=== PATIENT | female | born 1995 | race Caucasian/White ===

== ENCOUNTER 2022-06-28 09:57 | Emergency (ER) | payer OTHER, SELFPAY ==
--- NOTE | 2022-06-28 10:00 | ED.URI ---
HPI - URI/Sore Throat General Chief Complaint: Anxiety Stated Complaint: hard time taking deep breath Time Seen by Provider: 06/28/22 10:00 Source: patient Mode of arrival: ambulatory Limitations: no limitations History of Present Illness HPI Narrative: Ms. Blunt is a 26-year-old female patient presenting to the clinic today with complaints of shortness of breath/difficulty taking a deep breath. She reports she has had the symptoms began over the weekend. She reports that she has had increased stress. She is a current smoker/vaping and is on the [employer]. She denies any recent long travel. She denies any history of asthma. She has a nonproductive cough at times. Denies any fever or chills. Took a at home COVID test yesterday and was negative. Related Data Home Medications Medication Instructions Recorded Confirmed No Home Medications 06/28/22 06/28/22 Allergies Allergy/AdvReac Type Severity Reaction Status Date / Time No Known Allergies Allergy Verified 06/28/22 10:15 Review of Systems Review of Systems: Pertinent positives per HPI. Patient denies any fever, chills, rash, headache, visual changes, dizziness, cough, runny nose, sore throat, chest pain, palpitations, nausea, vomiting, diarrhea, constipation, abdominal pain, or any urinary issues. PMFSH Comments At the time of my signature, I reviewed and agree with the nursing past medical, surgical, social, and family history. There is no relevant family history pertinent to the patient complaint. Exam Narrative: General: Well-developed, well nourished, in no apparent distress Head: Normocephalic, atraumatic Eyes: Pupils equally round and reactive to light bilaterally, EOM intact, sclera and conjunctive clear, no discharge, lids normal Ears: TMs intact and clear, ear canals clear, no drainage, grossly hearing normal. Nose: Nares patent, no discharge, no inflammation, no sinus tenderness. Mouth: Oropharynx without lesions or masses, good dentition, MMM. Neck: Supple, trachea midline, no enlargement of anterior or posterior cervical nodes, no thyroid masses or goiter palpable. Cardio: Regular rate and rhythm, s1 and s2 normal, no murmur appreciated. Resp: Clear to auscultation bilaterally anteriorly and posteriorly, no rhonchi, rales, wheezing or rubs Course Course Emergency Course: Portions of this record may have been created with voice recognition software. Level of Care: Express Care Visit Vital Signs Vital signs: Vital Signs Temperature 36.9 C 06/28/22 10:12 Pulse Rate 105 H 06/28/22 10:12 Respiratory Rate 18 06/28/22 10:12 Blood Pressure 122/80 06/28/22 10:12 Pulse Oximetry 100 06/28/22 10:12 Oxygen Delivery Room Air 06/28/22 10:12 Temperature 36.9 C 06/28/22 10:12 Pulse Rate 105 H 06/28/22 10:12 Respiratory Rate 18 06/28/22 10:12 Blood Pressure 122/80 06/28/22 10:12 Pulse Oximetry 100 06/28/22 10:12 Oxygen Delivery Room Air 06/28/22 10:12 Vital signs reviewed MDM - URI/Sore Throat MDM Narrative Medical decision making narrative: At the time of visit patient is resting comfortably on the exam table. Patient has enlarged tonsils that may be causing her some difficulty breathing. Risk for PE include vaping and control however she does not appear to have any symptoms other than shortness of breath when trying to take a deep breath. SPO2 is 100% in the clinic today. Heart rate is 105. I suspect the patient may have a little bit of anxiety as well. Supportive measures were discussed with the patient she voiced understanding of discharge instructions and agrees to treatment plan. EKG was performed in the clinic and it showed sinus rhythm heart rate 90 bpm without ectopy Differential Diagnosis Differential diagnosis: Likely upper respiratory infection and other (PE, enlarged tonsils obstructing airway, asthma, bronchitis, anxiety) ECG Data EKG #1: Attestation: I personally revi
[2022-06-28 10:12] VITALS: BP 122/80; PULSE 105; RESP 18; TEMP 36.9; O2SAT 100
--- NOTE | 2022-06-28 10:31 | ECG_ITS ---
Measurements Intervals [place] Rate: 90 P: 37 OR: 133 QRS: 64 QRSD: 77 T: 1 QT: 350 QTc: 429 Interpretive Statements SINUS RHYTHM BORDERLINE ST-T WAVE ABNORMALITY- INFERIOR LEADS BORDERLINE ECG NO PREVIOUS ECG AVAILABLE FOR COMPARISON Electronically Signed On 06-28-2022 21:19:33 CDT by John Muñoz D.O.
== END 2022-06-28 10:55 | disposition home or self-care (01) ==
PROVIDERS: Emergency Provider Nurse Practitioner Family
DX: J35.1 Hypertrophy of tonsils (principal); R06.02 Shortness of breath; F17.290 Nicotine dependence, other tobacco product, uncomplicated
CPT/HCPCS: 93005; 99213; G0463

== ENCOUNTER 2024-07-29 10:33 | Emergency (ER) | payer OTHER, SELFPAY ==
--- NOTE | 2024-07-29 10:59 | ED.URI ---
HPI - URI/Sore Throat General Chief Complaint: Upper Respiratory Infection Stated Complaint: Sore Throat Time Seen by Provider: 07/29/24 10:59 Source: patient, RN notes reviewed and old records reviewed Mode of arrival: ambulatory Limitations: no limitations History of Present Illness HPI Narrative: 28-year-old female to [facility] with complaint of sore throat since yesterday. Patient denies difficulty swallowing, shortness of breath, fever, allergies, pertinent medical history. Patient able to tolerate fluids by mouth. Patient resting in exam room in no acute distress. Respirations even nonlabored. Related Data Allergies Allergy/AdvReac Type Severity Reaction Status Date / Time No Known Allergies Allergy Verified 07/29/24 10:55 Review of Systems Review of Systems: All systems reviewed & are unremarkable except as noted in HPI and below Constitutional: Constitutional: Reports no additional constitutional complaints Eyes: Eyes: Reports no additional eye complaints ENT: Reports as per HPI and Reports sore throat Cardiovascular: Cardiovascular: Reports no additional cardiovascular complaints, Denies chest pain and Denies dyspnea Respiratory: Respiratory: Reports no additional respiratory complaints, Denies cough and Denies dyspnea Musculoskeletal: Musculoskeletal: Reports no additional musculoskeletal complaints Neurologic: Reports system reviewed and no additional complaints, except as documented Psychiatric: Psychiatric: Reports no additional psychiatric complaints PMFSH Comments At the time of my signature, I reviewed and agree with the nursing past medical, surgical, social, and family history. There is no relevant family history pertinent to the patient complaint. Exam Const: General: cooperative, no acute distress, alert, tired appearing, uncomfortable and well nourished Nutritional Appearance: well nourished Orientation/consciousness: patient oriented x3 Limitations: no limitations HENMT: Head: normal to inspection Ears: external ears normal Face/Nose/Sinus: Normal external nose present, Normal nares present, normal facial exam, No erythema and No edema Face and sinus: normal facial exam, no erythema and no edema Mouth: Yes Normal oral and palatal mucosa present Throat: abnormal tonsil bilateral erythema and hypertrophy 2+ and postnasal drainage Eyes: General: appearance normal, both eyes and all related structures Neck: Neck: normal visual inspection, full ROM and no meningeal signs Lymphatic: no lymphedema noted and lymphadenopathy bilateral anterior cervical tender Chest: Chest palpation & inspection: normal inspection of the chest Resp: Effort & Inspection: normal respiratory effort and able to speak in complete sentences Auscultation: clear to auscultation bilaterally Cardio: Jugular venous distension: no JVD Rate: regular rate Rhythm: regular rhythm Back/Spine/Pelvis: Cervical Spine: cervical ROM normal Skin: General skin exam: normal color, no rashes or lesions noted and turgor normal Neuro: General: patient oriented x3, gait normal, moves all extremities and no meningeal signs Speech: normal speech Gait exam (Neuro): Normal gait present Extrem: General: normal to inspection, full ROM and capillary refill normal Psych: Appearance: grossly normal and well kempt Course Course Emergency Course: Some parts of this dictation were generated by voice recognition software and may contain typographical and/or grammatical inaccuracies. Level of Care: Express Care Visit Vital Signs Vital signs: reviewed MDM - URI/Sore Throat MDM Narrative Medical decision making narrative: 28-year-old female to [facility] with complaint of sore throat since yesterday. patient denies difficulty swallowing, shortness of breath, fever, allergies, pertinent medical history. Patient able to tolerate fluids by mouth. Patient resting in exam room in no acute distress. Respirations even nonlabored.
[2024-07-29 11:15] LABS: EDSTREPNEGPOS1 Negative (Negative)
== END 2024-07-29 11:17 | disposition home or self-care (01) ==
PROVIDERS: Emergency Provider Nurse Practitioner Family
DX: J02.9 Acute pharyngitis, unspecified (principal)
CPT/HCPCS: 87081; 87880; 99213; G0463